=== PATIENT | male | born 1965 | race Caucasian/White ===

== ENCOUNTER 2025-03-27 00:31 | Emergency (ER) | payer OTHER ==
[~2025-03-27] VITALS: Ht 167.6 cm; Wt 75.0 kg
[~2025-03-27 00:31] MED LIST: CEPH-558 PO; SULF-168 PO; VICOT PO
[2025-03-27 00:43] VITALS: TEMP 98.1
[2025-03-27 02:32] VITALS: BP 123/64; PULSE 82; RESP 18; O2SAT 98
== END 2025-03-27 03:09 | disposition home or self-care (01) ==
LOC: EMS 00:31
DX: H53.459 Other localized visual field defect, unspecified eye (principal); I10 Essential (primary) hypertension; E11.9 Type 2 diabetes mellitus without complications
CPT/HCPCS: 82962; 99282; Z7502